=== PATIENT | female | born 1960 | race Caucasian/White ===

== ENCOUNTER 2017-04-27 13:07 | Emergency (ER) | payer MEDICARE ==
[~2017-04-27] VITALS: Ht 162.6 cm; Wt 64.1 kg
[2017-04-27 13:13] VITALS: BP 129/83; PULSE 105; RESP 20; O2SAT 98
--- NOTE | 2017-04-27 13:52 | ED.REPORT ---
HPI-Rash / Abscess Date of Service April 27, 2017 ED Provider: Jay Howard MD Patient is a 56 year old female with a history of depression who presents to the ED complaining of a rash on the right side of her face onset 3 days ago. Associated symptoms include fever. The patient reports that she started picking at it and it started swelling yesterday. She denies difficulty swallowing or shortness of breath. Nursing Notes Stated Complaint: FACIAL ABSCESS Chief Complaint: Skin Rash/Abscess Nursing Notes Reviewed: Yes ([employer] not reconciled) Allergies: Coded Allergies: Penicillins (Verified Allergy, Unknown, Hives, 04/27/17) Scheduled Clindamycin (Clindamycin) 300 Mg Capsule 300 MG PO QID Lactobacillus Combo No.11 (Probiotic) 1 Each Cap.sprink 1 EACH PO DAILY Scheduled PRN Hydrocodone-Acetaminophen 5-325 mg (Hydrocodone-Acetaminophen 5-325 mg) 1 Each Tablet 1 TABLET PO Q4H PRN PRN For Pain General Time Seen by MD: 13:51 Chief Complaint Red area Hx Obtained From: Patient Arrived By: Walk-in Onset Occurred: 3 days ago Symptom Duration: Since onset Location: : Head/face Associated with: Reports Fever Exacerbated by: Scratching Recent Healthcare: No recent doctor visit, No recent hospitalization Similar Sx Previous: No Past Medical History Past Medical History depression Past Surgical History denies Smoking History Current Every Day Smoker Social History Other Social History: Good social support Ambulatory Status Independent Review of Systems Constitutional: Reports: Fever Ears / Nose / Throat: Denies: Throat swelling Respiratory: Denies: Non-productive cough, Shortness of breath Skin: Reports Rash, Reports Swelling Complete sys rev & neg: except as marked. Physical Exam Initial Vital Signs Vital Signs (First) Date Time Temp Pulse Resp B/P Pulse Ox O2 Delivery O2 Flow Rate FiO2 04/27/17 13:13 37.1 105 20 129/83 98 Room Air Initial VS: Reviewed, Vital signs normal (inED), Vital signs abnormal (fever at Urgent Care) General/Constitutional: Awake, Alert, Not toxic appearing Behavior: Positive: Anxious, Tearful Skin: Warm, Dry scabbed wound on the right cheek, do not appreciate crepitus erythematous extending up to her right eye no fluctuance no purulence Head / Eyes: Atraumatic, Normocephalic, PERRL, EOMI Respiratory / Chest: Atraumatic, No respiratory distress Neurologic: Oriented X3, Speech NL, No motor deficits, No sensory deficits Psychiatric: Affect NL, Mood NL Interpretation & Diagnostics Lab Results Interpretation Result Diagram: 04/27/17 1425 04/27/17 1425 Test 04/27/17 14:25 White Blood Count 12.9th/mm3 (3.8-10.1) Red Blood Count 4.18mil/mm3 (3.90-5.20) Hemoglobin 12.8g/dL (12.0-15.6) Hematocrit 38.5% (35.0-46.0) Mean Corpuscular Volume 92.1fL (81-100) Mean Corpuscular Hemoglobin 30.6pg (27.0-35.0) Mean Corpuscular Hemoglobin Concent 33.2% (32.0-37.0) Red Cell Distribution Width 13.2% (12.3-15.4) Platelet Count 272bil/L (150-400) Neutrophils (%) (Auto) 74.4% (40-74) Lymphocytes (%) (Auto) 15.5% (14-46) Monocytes (%) (Auto) 8.0% (4-12) Eosinophils (%) (Auto) 1.6% (0-5) Basophils (%) (Auto) 0.3% (0-3) Sodium Level 138mEq/L (134-144) Potassium Level 3.3mEq/L (3.5-5.2) Chloride Level 101mEq/L (97-108) Carbon Dioxide Level 20mmol/L (18-29) Blood Urea Nitrogen 17mg/dL (6-24) Creatinine 0.90mg/dL (0.57-1.00) Estimat Glomerular Filtration Rate 92mL/min (>59) Glucose Level 91mg/dL (60-99) Calcium Level 9.7mg/dL (8.5-10.1) Total Bilirubin 1.1mg/dL (0.0-1.2) Aspartate Amino Transf (AST/SGOT) 27U/L (0-50) Alanine Aminotransferase (ALT/SGPT) 25U/L (0-32) Alkaline Phosphatase 99U/L (25-150) Total Protein 7.2g/dL (6.4-8.4) Albumin 4.0g/dL (3.4-5.0) Lab Results Interpretation: CBC positive leukocytosis CMP normal Blood culture pending Re-Eval/Medical Decision Med Decision/Clinical Course This is a 56-year-old female sent over from urgent care with an infection of the face and fever. The patient works she had a wound that she scratched and picked back, now has developed redness swelling and pain. She was also found to have a low-grade fever at urgent care, and there was initial concern for the possibility of an abscess so sent here. On exam she is anxious, but nontoxic. He is a central scabbed area with surrounding cellulitis and now balls underneath the right eye in the lower lid, however I do not appreciate any fluctuance, crepitus, or signs of an abscess and be amenable to incision and drainage. Wound culture was sent from the large central open a probable excoriation where she picked up the wound. There is no active purulence, no wet drainage. The patient's alert, appropriate without signs of meningitis or meningeal spread. Rest of exam is normal. She has no previous history of MRSA. Plan IV placed. Labs no for mild leukocytosis, blood cultures are also pending and were obtained given the fever identified earlier. Patient's been started on parenteral clindamycin. She clinically appears well and is a reasonable For discharge home on oral clindamycin, I am also recommending oral probiotics and provided some when necessary hydrocodone. Routine and return precautions are reviewed. Source of Hx: Old records (none in EMR) Re-Evaluation/Progress : Time of Eval: 15:25 Re-Evaluation/Progress Note: Discussed results and plan for discharge. The patient understands and agrees to the plan for discharge. All questions were addressed. Differential Diagnosis: Positive: Cellulitis, Negative: Abscess, Chicken pox, Erythema multiforme, Osteomyelitis, Pityriasis rosea, Scabies, Scarlet fever, Shingles, herpes zoster Counseled Regarding: Diagnosis, Lab results, Need for follow-up, When/why to return to ED Discharge & Departure Impression: Primary Impression: Wound infection Additional Impression: Facial cellulitis Disposition: Home Discharge Condition All VS Reviewed: Yes Condition: Stable Additional Instructions: 1. You have an infection of the skin of the face ("cellulitis"). 2. You received an injection of the antibiotic clindamycin. You will need to continue this medicine and take a dose at bedtime today. Starting tomorrow you want to take it 4 times a day for 10 days. 3. It usually takes between 24-48 hours for the anabolic steroids start began to turn around the infection, so is unlikely to be markedly improved by tomorrow. You should be clearly improving by Friday, and if not improving-or if there are new or worsening symptoms, you need to return to the emergency department. 4. I recommend taking a probiotic while you are taking the antibiotic, this is to replace the normal healthy bacteria of the intestine that killed by the antibiotic. Continue probiotics for an additional 2 weeks after completing the antibiotic. 5. If needed you can take hydrocodone/APAP 05/325 one to 2 tabs every 6 hours for pain. Note: This medication contains narcotic and causes drowsiness, no driving for at least 4-6 hours after taking. Jonah Attestation Portions of this note were transcribed by Regina Fowler. I, Dr. Howard personally performed the history, physical exam and medical decision-making; I reviewed and confirmed the accuracy of the information in the transcribed note. Signed by: Jonah Andrade, 04/27/17 and 1530 Jay Howard MD April 27, 2017 13:52 Camila Fowler April 27, 2017 14:04
[2017-04-27] MEDS ORDERED: HYDROmorphone 0.5 mg/0.5 mL iSecure Syringe IVPUSH PRN (14:00)
[2017-04-27] MEDS ORDERED: Ondansetron 2 mg/mL 2 mL Inj IVPUSH ONE (14:00)
[2017-04-27] MEDS ORDERED: Dexamethasone Inj 10 MG in 0.9% Sodium Chloride-Pha MIX 50 ML IV ONE (14:00)
[2017-04-27] MEDS ORDERED: Clindamycin Inj 900 MG in IV Premix 1 EACH IV ONE (14:00)
[2017-04-27 14:41] LABS: BASOPHILS % (AUTO) 0.3 % (0-3); EOSINOPHILS % (AUTO) 1.6 % (0-5); Mean Corpuscular Hemoglobin 30.6 pg (27.0-35.0); Mean Corpuscular Volume 92.1 fL (81-100); NEUTROPHILS % (AUTO) 74.4 % (40-74); Platelet Count 272 bil/L (150-400)
[2017-04-27] MEDS ORDERED: LACT1CAP73 PO (15:09)
[2017-04-27] MEDS ORDERED: CLIN-78 PO (15:09)
[2017-04-27] MEDS ORDERED: HYDR-4003 PO (15:09)
[2017-04-27 16:04] VITALS: BP 132/65; PULSE 94; RESP 18; O2SAT 96
== END 2017-04-27 16:05 | disposition home or self-care (01) ==
LOC: SED 13:07
DX: L03.211 Cellulitis of face (principal); S01.401A Unspecified open wound of right cheek and temporomandibular area, initial encounter; W26.9XXA Contact with unspecified sharp object(s), initial encounter; Y93.89 Activity, other specified; Y99.8 Other external cause status; Y92.9 Unspecified place or not applicable; F17.210 Nicotine dependence, cigarettes, uncomplicated; F12.10 Cannabis abuse, uncomplicated; Z88.0 Allergy status to penicillin
CPT/HCPCS: 36415; 80053; 85025; 87040; 87070; 87077; 87186; 87205; 96365; 96375; 99284; J1100; J1170; J2405